=== PATIENT | male | born 2000 | race American Indian/Alaskan Native ===

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

== ENCOUNTER 2024-12-13 13:34 | Emergency (ER) | payer MEDICAID ==
[~2024-12-13] VITALS: Ht 175.3 cm; Wt 51.3 kg
--- NOTE | 2024-12-13 13:42 | ECG ---
[facility] Test Date: 2024-12-13 Test Time: 13:40:51 Pat Name: CROW VALDEZ Department: ER Room: Gender: M Front End Technician: GP : 2000 Requested By: MADDY HIDALGO Order Number: [id number] Reading MD: Measurements Intervals Guys Rate: 83 P: 31 OR: 135 QRS: 50 QRSD: 112 T: 68 QT: 355 QTc: 418 Interpretive Statements Sinus rhythm Incomplete right bundle branch block ST elev, probable normal early repol pattern Please click the below link to view image of tracing.
--- NOTE | 2024-12-13 13:48 | ED.PDOC ---
History of Present Illness HPI Comments 24-year-old male came to the ER stating that he has been having chest pain shortness a breath which started 1-1/2 hours prior to coming to the ER. He was sleeping when he woke up with chest pain. Denies nausea vomiting. Denies any other symptoms. Chief Complaint: Chest Pain Time Seen by MD: 13:41 Primary Care Provider: EMILY Reviewed Notes: Nurses Notes, Medications, Allergies Allergies: Coded Allergies: NO KNOWN ALLERGIES (Unverified , 08/25/18) Information Source: Patient Mode of Arrival: Ambulatory Severity: Moderate Timing: Hours Duration: Since onset Past Medical History PAST MEDICAL HISTORY: Denies Surgical History: Denies all surgeries Family History Family History: Unobtainable Social History Smoker: Non-Smoker Alcohol: Denies ETOH Use Drugs: Marijuana Lives In: Home Constitutional: denies: chills, diaphoresis, fatigue, fever, malaise, sweats, weakness, others EENTM: denies: blurred vision, double vision, ear bleeding, ear discharge, ear drainage, ear pain, ear ringing, eye pain, eye redness, hearing loss, mouth pain, mouth swelling, nasal discharge, nose bleeding, nose congestion, nose p ain, photophobia, tearing, throat pain, throat swelling, voice changes, others Respiratory: denies: cough, hemoptysis, orthopnea, SOB at rest, shortness of breath, SOB with excertion, stridor, wheezing, others Cardiovascular: reports: chest pain; denies: dizzy spells, diaphoresis, Dyspnea on exertion, edema, irregular heart beat, left arm pain, lightheadedness, palpitations, PND, syncope, others Gastrointestinal: denies: abdomen distended, abdominal pain, blood streaked bowels, constipated, diarrhea, dysphagia, difficulty swallowing, hematemesis, melena, nausea, poor appetite, poor fluid intake, rectal bleeding, rectal pain, vomiting, others Genitourinary: denies: burning, dysuria, flank pain, frequency, hematuria, incontinence, penile discharge, penile sore, pain, testicle pain, testicle swelling, urgency, others Neurological: denies: dizziness, fainting, headache, left sided numbness, left sided weakness, numbness, paresthesia, pre-existing deficit, right sided numbness, right sided weakness, seizure, speech problems, tingling, tremors, weakness, others Musculoskeletal: denies: back pain, gout, joint pain, joint swelling, muscle pain, muscle stiffness, neck pain, others Integumetry: denies: bruises, change in color, change in hair/nails, dryness, laceration, lesions, lumps, rash, wounds, others Allergic/Immunocompromised: denies: Difficulty Healing, Frequent Infections, Hives, Itching, others Hematologic/Lymphatic: denies: anemia, blood clots, easy bleeding, easy bruising, swollen glands, others Endocrine: denies: excessive hunger, excessive sweating, excessive thirst, excessive urination, flushing, intolerance to cold, intolerance to heat, unexplained weight gain, unexplained weight loss, others Psychiatric: denies: anxiety, bipolar disorder, depression, hopeless, panic disorder, schizophrenia, sleepless, suicidal, others Physical Exam General Appearance: Moderate Distress HEENT: Normal ENT Inspection, Pharynx Normal, TMs Normal Neck: Full Range of Motion, Non-Tender, Normal, Normal Inspection Respiratory: Chest Non-Tender, Lungs Clear, No Accessory Muscle Use, No Respiratory Distress, Normal Breath Sounds Cardiovascular: No Edema, No JVD, No Murmur, No Gallop, Normal Peripheral Pulses, Regular Rate/Rhythm Breast Exam: Deferred Gastrointestinal: No Organomegaly, Non Tender, No Pulsatile Mass, Normal Bowel Sounds, Soft Genitalia: Deferred Pelvic: Deferred Rectal: Deferred Extremities: No calf tenderness, Normal capillary refill, Normal inspection, Normal range of motion, Non-tender, No pedal edema Musculoskeletal : Apperance: Normal Neurologic: Alert, social services director II-XII nml as Tested, No Motor Deficits, Normal Affect, Normal Mood, No Sensory Deficits Cerebellar Function: Normal Reflexes: Normal Skin: Dry, Normal Color, Warm Peripheral Pulses: 3+ Radial (R), 3+ Radial (L) Lymphatic: No Adenopathy Was a procedure done? Was a procedure done?: No EKG EKG : Pulse Rate (adult): 83 Cardiac Rhythm: NSR Differential Dx Considerations may include: Musculoskeletal pain Anxiety X-Ray, Labs, Meds, VS Vital Signs Date Time Temp Pulse Resp B/P (MAP) Pulse Ox O2 Delivery O2 Flow Rate FiO2 12/13/24 13:40 83 Patient alert. Complaining of chest pain. EKG reviewed does not show any acute changes. Vitals stable. Answering questions. No sign of distress. No leg swelling. No shortness a breath. Heart rate within normal limits. Explained to the patient. Was told to follow up with his primary care physician. Was told to come back if there is any problem. Time of 1ST Reevaluation: 13:47 Reevaluation 1ST: Unchanged Patient Education/Counseling: Diagnosis, Treatment, Prognosis, Need For Follow Up Family Education/Counseling: No Family Present SEPSIS Sepsis Screen Vital Signs Date Time Temp Pulse Resp B/P (MAP) Pulse Ox O2 Delivery O2 Flow Rate FiO2 12/13/24 13:40 83 Departure 1 Departure Time of Disposition: 13:48 Impression: Primary Impression: Musculoskeletal chest pain Disposition: HOME / SELF CARE / HOMELESS Condition: Good Discharged With: Self Critical Care Note Critical Care Time?: No Stability Stability form required: No Heart Score Heart Score: Heart Score Response (Comments) Value History Slightly Suspicious 0 EKG Normal 0 Age <45 0 Risk Factors No known risk factors 0 Troponin Normal limit 0 Total 0 RICARDO DALEY MD Dec 13, 2024 13:48
[2024-12-13 14:00] VITALS: PULSE 72; RESP 16; O2SAT 100
--- NOTE | 2024-12-13 14:16 | DVH ---
CHEST RADIOGRAPH Indication: sob Technique: Single frontal view of the chest was obtained COMPARISON: None FINDINGS: Lines and Tubes: None Lungs: Clear Pleura: No effusion. No pneumothorax. Cardiomediastinal contours: Unremarkable Bones: Unremarkable IMPRESSION: No acute disease.
--- NOTE | 2024-12-13 15:43 | DVH ---
EXAM: XY L SHOULDER 1V XRAY CLINICAL HISTORY: SHOULDER PAIN COMPARISON: None TECHNIQUE: XY L SHOULDER 1V XRAY Findings/Impression: Single frontal view of the left shoulder. There is no evidence of an acute fracture, blastic, or lytic lesions. No radiopaque foreign bodies. No joint effusion or superficial soft tissue abnormalities.
[2024-12-13] MEDS: HYDROcodone-ACET 5/325MG TAB PO ONE (15:56)
[2024-12-13 16:18] VITALS: BP 127/79; PULSE 112; RESP 16; TEMP 97.7; O2SAT 97
== END 2024-12-13 16:19 | disposition home or self-care (01) ==
LOC: ER 13:39
DX: R07.9 Chest pain, unspecified (principal); R06.02 Shortness of breath; F12.90 Cannabis use, unspecified, uncomplicated
CPT/HCPCS: 36415; 71045; 73020; 84484; 85379; 93005